=== PATIENT | female | born 1935 | race Caucasian/White ===

== ENCOUNTER 2017-05-13 17:00 | Inpatient (IN) ==
[2017-05-13 17:31] VITALS: BMI 30.1
[2017-05-13] MEDS ORDERED: SYSTANE EYE DROPS 0.7ml EACH EYE PRN (19:28)
--- NOTE | 2017-05-13 19:42 | History & Physical Report ---
History of Present Illness Date: 05/13/17 Chief complaint: fatigue HPI: Mrs. Guthrie is an 84-year-old female with history of atrial fibrillation on Pradaxa. She had routine blood work done yesterday which time hemoglobin came back 6.6 with MCV 61. She was seen in the office today in hemoglobin rechecked confirming marked anemia with repeat hemoglobin 6.8. The patient last had laboratory data in January 2017 at which time hemoglobin was 11.1 and last had labs in the [facility] system in August 2015 when hemoglobin was 13.6 and MCV was 96.9. Patient reports that she feels fatigued and tired. She has mild generalized weakness but has otherwise been going about usual activities. She denies exertional dyspnea, chest pain, palpitations, lightheadedness, or any recognized blood loss. She specifically denies indigestion, heartburn, nausea, or reflux. She's had no melena or rectal bleeding. She had a got flu with 3 days of diarrhea a week or 2 ago but is not aware of any blood loss associated with that event. Hemoccult the office was negative. She is hospitalized at this time for stabilization and consideration of additional workup. Patient's last colonoscopy was in 2005. Review of Systems All systems PM: 10-point ROS was reviewed, no additional remarkable complaints except (insomnia and minor arthralgias; otherwise as noted in the history of present illness.) Past Medical History Past Medical History Osteoarthritis Hypertension Atrial fibrillation Hypothyroidism History of breast cancer Lipedema, bilateral lower extremities Surgical History: Right lumpectomy 2000, bilateral cataracts, appendectomy, cholecystectomy, hysterectomy Family History: Father of coronary artery disease, mother of uterine cancer; patient denies known family history of colon cancer or other chronic bowel diseases Family History Updates: . - Social History Smoking status: Former smoker Substance use type: does not use Alcohol intake frequency: does not drink Housing: house Does patient use chewing tobacco?: No Current residence: Apartment/Private Home Social history: PCP-Dr. Aixa DENIS-patient's son and daughter share DPOA CODE STATUS-full Medications Home Medications Medication Instructions Recorded Confirmed Type RX: Calcium Carbonate/Vitamin D3 1 tab PO DAILY #0 09/03/15 05/13/17 History [Calcium 600-Vit D3 200 Tablet] RX: Furosemide 20 mg PO DAILY #0 09/03/15 05/13/17 History RX: Hydrocodone/Acetaminophen 1 - 2 tab PO Q4HR PRN #0 09/03/15 History [Hydrocodon-Acetaminophn 10-325] RX: Levothyroxine Sodium 75 mcg PO ACB #0 09/03/15 05/13/17 History [Synthroid] RX: Multivitamin [Multivitamins] 1 tab PO DAILY #0 09/03/15 05/13/17 History RX: Potassium Chloride 10 meq PO BID #0 09/03/15 05/13/17 History RX: Verapamil HCl [Verapamil ER] 180 mg PO BID #0 09/03/15 05/13/17 History Dabigatran [Pradaxa] 1 cap PO BID 05/13/17 05/13/17 History Propylene Glycol/Peg 400/Pf 1 each OP PRN PRN 05/13/17 05/13/17 History [Systane 0.3-0.4% Eye Drops] Allergies Allergy/AdvReac Type Severity Reaction Status Date / Time No Known Allergies Allergy Verified 05/13/17 17:54 Exam Vital Signs: Temperature 97.9 F 05/13/17 17:30 Pulse Rate 100 05/13/17 17:30 Respiratory Rate 18 05/13/17 17:30 Blood Pressure 147/81 H 05/13/17 17:30 Pulse Oximetry 100 05/13/17 17:30 EXAM: General-NAD, alert, fluent speech HEENT-PERRL, EOMI without nystagmus, conjugate gaze, conjunctiva clear, sclera anicteric, facial structures symmetric, oropharynx clear, neck supple and without adenopathy Lungs-respirations nonlabored, good airflow, breath sounds clear Cardiac-irregular rhythm, S1-S2, low-grade tachycardia Abd-soft, nontender, no mass palpated on exam, bowel sounds present Ext-without edema Skin-scattered small bruises but no wounds or ulcerations MS-minor degenerative changes Neuro-cranial nerves 3-12 intact, motor tone/power normal, sensation intact 4 extremities Psych-calm, cooperative Height/Weight/BMI: Height 1.65 m Weight 82.1 kg Body Mass Index 30.1 Results - Labs CBC & Chem 7: 05/13/17 18:35 Labs: Labs in the office yesterday include hemoglobin 6.6 with MCV 61, white count 8.7 , platelet count 370; basic metabolic panel unremarkable other than creatinine 1.0 with GFR 53. TSH was 3.53. Assessment and Plan (1) Microcytic anemia Current visit: Yes Status: Acute Assessment and Plan: Impression: Microcytic anemia Probable iron deficiency, likely due to chronic blood loss Thrombocytosis, likely reactive Chronic atrial fibrillation Fatigue/weakness hx of breast cancer CKD, stage III Hypothyroidism Plan: Mrs. Guthrie is hospitalized on an observation basis. Hemoglobin has been confirmed with microcytosis present suggesting iron deficiency. Hemoccult was negative in the office and patient is not aware of blood loss but chronic GI blood loss is probable. Iron studies/ferritin drawn prior to transfusion-anticipate patient will benefit from iron therapy. Transfuse 1 unit packed red blood cells tonight; hold Pradaxa. May require second unit of blood. May require PT/OT consults tomorrow depending on symptoms after transfusion. Dr. Keen consulted-anticipate EGD in a.m. with colonoscopy following prep in near future. - Physician Narrative Narrative: Date: 05/13/17 Time: 1936 Hospital Course Summary Disclaimer: The visit summary below is not to be considered part of the above Progress Note. Hospital Course: 05/13/17 Patient with chronic atrial fibrillation on Pradaxa admitted microcytic anemia without recognized blood loss or GI symptoms that suggest upper or lower source. Minimally symptomatic. Transfuse 1 unit packed red blood cells tonight; iron study/ferritin pending. Pradaxa on hold. Dr. Keen consulted to coordinate endoscopic studies.
[2017-05-13] MEDS ORDERED: NS FLUSH BAG 500ml IV PRN (19:53)
[2017-05-13] MEDS ORDERED: POTASSIUM CHLORIDE 10 MEQ PO SCH (21:00)
[2017-05-14] MEDS: LEVOTHYROXINE 50 MCG TABLET PO SCH ×2 (06:02→12:31)
--- NOTE | 2017-05-14 07:36 | General Surgery Consult Note ---
Consult date: 05/14/17 Attending Physician: Serina Tucker MD Reason for consult: other (Anemia) [facility] Patient Stated Medical History Cataracts Yes Cardiac Arrhythmia Yes: afib Hypertension Yes Asthma Yes Bronchitis Yes Pneumonia Yes: years ago Anemia Yes Osteoarthritis Yes Surgical History: Right lumpectomy 2000, bilateral cataracts, appendectomy, cholecystectomy, hysterectomy, colonoscopy 2005 (report not available at this time) Family History: Father of coronary artery disease. Mother of uterine cancer patient denies known family history of colon cancer or other chronic bowel diseases - Social History Smoking status: Former smoker Alcohol intake frequency: does not drink Does patient use chewing tobacco?: No Current residence: Apartment/Private Home Social history: PCP-Dr. Kruse DPOA-patient's son and daughter share DPOA CODE STATUS-full Medications Home Medications Medication Instructions Recorded Confirmed Type Calcium Carbonate/Vitamin D3 1 tab PO DAILY #0 09/03/15 05/13/17 History [Calcium 600-Vit D3 200 Tablet] Furosemide 20 mg PO DAILY #0 09/03/15 05/13/17 History Hydrocodone/Acetaminophen 1 - 2 tab PO Q4HR PRN #0 09/03/15 History [Hydrocodon-Acetaminophn 10-325] Levothyroxine Sodium [Synthroid] 75 mcg PO ACB #0 09/03/15 05/13/17 History Multivitamin [Multivitamins] 1 tab PO DAILY #0 09/03/15 05/13/17 History Potassium Chloride 10 meq PO BID #0 09/03/15 05/13/17 History Verapamil HCl [Verapamil ER] 180 mg PO BID #0 09/03/15 05/13/17 History Dabigatran [Pradaxa] 1 cap PO BID 05/13/17 05/13/17 History Propylene Glycol/Peg 400/Pf 1 each OP PRN PRN 05/13/17 05/13/17 History [Systane 0.3-0.4% Eye Drops] Allergies Allergy/AdvReac Type Severity Reaction Status Date / Time No Known Allergies Allergy Verified 05/13/17 17:54 Review of Systems 10-point ROS: negative except for HPI and the following: - Eyes/Ears/Nose/Throat Ear Nose Throat: Present: loose/chipped/cracked teeth (missing teeth, has dentures) - Cardiovascular Cardiovascular: Present: irregular heart beat - Musculoskeletal Musculoskeletal: Present: other (generalized weakness) - Endocrine Endocrine: Present: thyroid problems (hypothyroidism) - Hematologic/Lymphatic Hematologic/Lymphatic: Present: easy bruising, use of blood thinners - Vital Signs Last Vital Signs Temp 98.0 F 05/14/17 00:36 Pulse 84 05/14/17 00:36 Resp 22 05/14/17 00:36 BP 121/70 05/14/17 00:36 Pulse Ox 97 05/14/17 00:36 - Laboratory Result Diagrams: 05/14/17 01:56 General Surgery Results - Results Labs: 05/14/17 01:56 Hospital Course Summary Disclaimer: The visit summary below is not to be considered part of the above Progress Note. Hospital Course: 05/13/17 Patient with chronic atrial fibrillation on Pradaxa admitted microcytic anemia without recognized blood loss or GI symptoms that suggest upper or lower source. Minimally symptomatic. Transfuse 1 unit packed red blood cells tonight; iron study/ferritin pending. Pradaxa on hold. Dr. Keen consulted to coordinate endoscopic studies.
[2017-05-14] MEDS ORDERED: LIDOCAINE VISCOUS 2% ORAL LIQUID 15ml ONE (09:18)
--- NOTE | 2017-05-14 09:20 | Anesthesia Preoperative Report ---
Anesthesia Preoperative Record - Date and Time Date: 05/14/17 Preoperative Diagnosis: anemia Proposed Procedure: egd NPO Since Date: 05/13/17 NPO Since Time: 23:00 Allergies/Adverse Reactions: Allergies Allergy/AdvReac Type Severity Reaction Status Date / Time No Known Allergies Allergy Verified 05/13/17 17:54 - Vital Signs Vital Signs: Temperature 98.3 F 05/14/17 09:08 Pulse Rate 88 05/14/17 09:13 Respiratory Rate 16 05/14/17 09:08 Blood Pressure 138/69 05/14/17 09:08 Pulse Oximetry 95 05/14/17 09:08 Height and Weight: Height 1.65 m Weight 82.8 kg Body Mass Index 30.1 - Medications Inpatient Medications: Current Medications Calcium/Vitamin D (Caltrate + D) 1 tab PO DAILY [facility] Furosemide (Lasix) 20 mg PO DAILY [facility] Levothyroxine Sodium (Synthroid) 75 mcg PO ACB [facility] Last Admin: 05/14/17 06:02 Dose: Not Given Multivitamins (Theragran) 1 tab PO DAILY [facility] Polyethyl Glycol/Propylene Glycol (Systane Eye Drops) 1 drop EACH EYE PRN PRN PRN Reason: Dry eyes Potassium Chloride (K-Dur) 10 meq PO BIDWM [facility] Sodium Chloride (Normal Saline) 500 ml IV PRN PRN Last Admin: 05/13/17 22:30 Dose: 500 ml Verapamil HCl (Calan Sr) 180 mg PO BID [facility] Last Admin: 05/13/17 20:49 Dose: 180 mg Home Medications: Home Medications Medication Instructions Recorded Confirmed Type Calcium Carbonate/Vitamin D3 1 tab PO DAILY #0 09/03/15 05/13/17 History [Calcium 600-Vit D3 200 Tablet] Furosemide 20 mg PO DAILY #0 09/03/15 05/13/17 History Hydrocodone/Acetaminophen 1 - 2 tab PO Q4HR PRN #0 09/03/15 History [Hydrocodon-Acetaminophn 10-325] Levothyroxine Sodium [Synthroid] 75 mcg PO ACB #0 09/03/15 05/13/17 History Multivitamin [Multivitamins] 1 tab PO DAILY #0 09/03/15 05/13/17 History Potassium Chloride 10 meq PO BID #0 09/03/15 05/13/17 History Verapamil HCl [Verapamil ER] 180 mg PO BID #0 09/03/15 05/13/17 History Dabigatran [Pradaxa] 1 cap PO BID 05/13/17 05/13/17 History Propylene Glycol/Peg 400/Pf 1 each OP PRN PRN 05/13/17 05/13/17 History [Systane 0.3-0.4% Eye Drops] - Medical History Respiratory: Reports: Asthma, Bronchitis, Pneumonia (years ago) DENIES: Sleep Apnea Cardiovascular: Reports: Arrhythmia (afib, Sees Dr. Ulrich every 6 months), Hypertension Neuro/Musculoskeletal: Reports: [email or web address] Renal/Endocrine: Reports: Thyroid Disease Other History: Reports: Cancer (right breast cancer 2000) - Surgical History HEENT Surgeries: Reports: Eye Surgery (bilateral cataracts removed) Cardiac Surgeries/Treatments: Reports: Cardiac Catheterization (10 yrs ago for arythmia, found no problems, no mi of chest pain ) GI Surgery/Treatments: Reports: Appendectomy, Cholecystectomy, Colonoscopy Reproductive Surgery/Treatment: Reports: Hysterectomy, Oophorectomy, Other ( right lumpectomy-2000) Anesthesia Reactions: Nausea and Vomiting Hx Family Anesthesia Reaction: No - Social History Smoking Status: Former smoker Hx Chewing Tobacco Use: No Substance Use Type: does not use Alcohol Intake Frequency: does not drink - Pertinent Findings Laboratory: CBC and BMP 05/14/17 01:56 EKG: A-fib - Physical Exam Respiratory Exam: Present: lungs clear, bilateral breath sounds equal Cardiovascular Exam: Present: irregularly irregular, no murmur - Airway Assessment Mallampati Score: I TMD: 3 Fingerbreadths Neck Extension: good Teeth: upper dentures, lower dentures Overall Assessment: no airway concerns - ASA ASA Score: 3 - Plan Anesthesia: General TIVA - Discussion Discussion: Discussed risks/options/alternatives of anesthesia and questions answered. Patient consents. Nursing pain assessment noted. Attestation Statement: Prior to the delivery of any anesthetic medication, I examined the patient, developed the plan, obtained the patient's consent and discussed the risk and benefits of the procedure with the patient/guardian. - Additional Information Seen by Anesthesia: Yes
[2017-05-14] MEDS: LR 1,000 ML IV SCH (09:21)
[2017-05-14] MEDS ORDERED: PROPOFOL 20 ML ONE (09:30)
[2017-05-14] MEDS ORDERED: LIDOCAINE 2% (100mg/5mL) PF 5ml vl ONE (09:30)
[2017-05-14] MEDS ORDERED: LIDOCAINE VISCOUS 2% ORAL LIQUID 15ml PO ONE (09:31)
--- NOTE | 2017-05-14 09:45 | Procedure Note ---
- Procedure Date/Time: Date: 05/14/17 Time: 940 Surgeon: Leonila ASA Score: 3 Proceure: EGD for fausto assay, EGD- antrum biopsies - Preoperative Diagnosis Anemia - Postoperative EGD Diagnosis Postoperative EGD Diagnosis: Other (bleeding gastric ulcer) - Complications Complications: None Estimated Blood Loss: See Anesthesia Record. Vital Signs: See Anesthesia and PACU record.
--- NOTE | 2017-05-14 10:19 | Anesthesia Postoperative Note ---
- Date and Time Date: 05/14/17 Time: 09:56 - Status Patient Participated in Evaluation: Patient Participated in Person Vital Signs: Temperature 97.7 F 05/14/17 09:50 Pulse Rate 83 05/14/17 10:15 Respiratory Rate 14 05/14/17 10:15 Blood Pressure 141/77 H 05/14/17 10:15 Pulse Oximetry 98 05/14/17 10:15 Respiratory Function: Airway Patent Cardiovascular Function: Irregular Pulse EKG: A-fib Mental Status: Alert and Oriented Pain Intensity: 0 Hydration: IV Infusing Complications During Recover: None Apparent - Follow-Up Instructions Instructions: Per Surgeon
[2017-05-14] MEDS: CALCIUM 600 + VIT D 400 TABLET PO SCH (12:29)
[2017-05-14] MEDS: POTASSIUM CHLORIDE 10 MEQ PO SCH ×2 (12:29→18:18)
[2017-05-14] MEDS: FUROSEMIDE 20 MG TABLET PO SCH (12:29)
[2017-05-14] MEDS: PANTOPRAZOLE 40 MG INJECTION IVP SCH ×2 (12:43→20:51)
[2017-05-14] MEDS: SUCRALFATE 1gm/10ml ORAL LIQUID PO SCH ×3 (12:43→20:52)
[2017-05-14] MEDS ORDERED: PNEUMOCOCCAL 13 VACCINE 0.5ml INJECTION IM ONE (13:42)
--- NOTE | 2017-05-14 14:17 | Consultation ---
DATE OF CONSULTATION 05/14/2017 FINDINGS Mrs. Guthrie is an 82-year-old female I was asked to see today as a result of the finding of marked anemia upon laboratory evaluation. Upon questioning Mrs. Guthrie she informs me that she has not noted any type of component of bleeding. She denies any history for melanotic stools or history for hematochezia. She denies prior history for peptic ulcer disease. The patient denies significant nonsteroidal use. She states that she may take one or two ibuprofen on an every other day basis. The patient is on anticoagulation as a result of her history of atrial fibrillation. The patient states that recently she did have "a horrible flu" and had significant nausea, vomiting and diarrhea. The patient states that she has now recovered from the flu but was feeling more weak and fatigued than usual. She was noting a component of shortness of breath upon exertion. The patient presented to her primary care physician who obtained laboratory evaluation revealing the patient to be quite anemic with a hemoglobin of around 6. The patient was subsequently admitted to our facility for further care. PAST MEDICAL HISTORY Performed by my nurse practitioner, Lino Vázquez. PAST SURGICAL HISTORY Performed by my nurse practitioner, Lino Vázquez. MEDICATIONS Performed by my nurse practitionerLino. ALLERGIES Performed by my nurse practitionerLino. SOCIAL HISTORY Performed by my nurse practitionerLino. FAMILY HISTORY Performed by my nurse practitionerLino. REVIEW OF SYSTEMS Performed by my nurse practitionerLino. PHYSICAL EXAMINATION GENERAL: Mrs. Guthrie is an elderly, somewhat cachectic-appearing 82-year-old female who did not appear to be in acute distress. VITALS: Temperature 98.3, pulse 88, respirations 16, blood pressure 138/69, SaO2 95% on room air. HEENT: Normocephalic. Pupils are equal, round and reactive to light and accommodation. CHEST: Clear to auscultation bilaterally. HEART: Irregularly irregular. No murmur auscultated. ABDOMEN: Palpation of the abdomen reveals it to be soft and nontender. I do not appreciate any evidence for hepatosplenomegaly or abnormal masses. EXTREMITIES: Without clubbing, cyanosis, or edema. NEURO: Cranial nerves II-XII grossly intact. Patient is without focal motor or sensory deficits. LABORATORY/RADIOGRAPH EVALUATION The patient's hemoglobin was 6.7 upon admission. She did undergo a blood transfusion and this morning her hemoglobin is 7.0. Iron studies have been obtained and are pending at time of dictation. ASSESSMENT 82-year-old female who is on chronic anticoagulation secondary to atrial fibrillation who presents with anemia of uncertain etiology. PLAN Esophagogastroduodenoscopy. It was my recommendation to the patient and her daughter who was present this morning that we go ahead and proceed with an EGD for further evaluation of her marked anemia. I did discuss with the patient and her daughter what an EGD entails and its associated risks which include, but are not limited to, bleeding and perforation. The patient and family understood and wished to proceed. MTDD
--- NOTE | 2017-05-14 16:06 | Progress Note ---
- Date 05/14/17 Subjective: Mrs. Guthrie in following EGD this morning. In retrospect knowing an ulcer was found she reports no preceding melena, black stools, dyspepsia, heartburn, or nausea. She reports being completely surprised with the finding. Minor oozing was reported after clot over the prepyloric ulcer was irrigated. Otherwise the patient reports that she feels much better today despite minimal change in hemoglobin overnight. She denies dyspnea, lightheadedness, palpitations, or nausea. She's had no chest pain. Is ambulating in the room without assistance. Objective Vital signs: Temperature 97.9 F 05/14/17 15:15 Pulse Rate 88 05/14/17 15:15 Respiratory Rate 18 05/14/17 15:15 Blood Pressure 119/67 05/14/17 15:15 Pulse Oximetry 100 -RA 05/14/17 15:15 NAD, alert, fluent speech Conjunctiva clear, sclera anicteric Respirations nonlabored, good airflow, breath sounds clear Regular rhythm, S1-S2 Abdomen soft, nontender, diminished bowel sounds MAEW, ambulating without assistance Height/Weight/BMI: Height 1.65 m Weight 82.8 kg Body Mass Index 30.1 Results - Labs CBC & Chem 7: 05/14/17 11:23 Labs: Hemoglobin immediately after 1 unit PRBCs 7.0; 7.1 this morning. Assessment and Plan (1) Microcytic anemia Current visit: Yes Status: Acute Assessment and Plan: Impression: Microcytic anemia Prepyloric ulcer with active bleeding Probable iron deficiency, likely due to chronic blood loss Thrombocytosis, POA, resolved Chronic atrial fibrillation Fatigue/weakness hx of breast cancer CKD, stage III Hypothyroidism Plan: Mrs. Guthrie require additional blood today based on ongoing blood loss and hemoglobin 7.1. Converted to inpatient status for same reason. Continue to monitor hemoglobin closely-may require additional blood. Iron studies pending-should be back tomorrow; may benefit from iron infusion. IV PPI and oral Carafate initiated. Pradaxa remains on hold for at least short run pending stabilization of hemoglobin/ulcer. Endoscopic studies discussed with Dr. Keen-given results he did not feel colonoscopy needed at this time. DVT Prophylaxis: SCD's GI Prophylaxis: Protonix (bid) Resuscitation Status: Full Code - Physician Narrative Narrative: Date: 05/14/17 Time: 1603 Hospital Course Summary Disclaimer: The visit summary below is not to be considered part of the above Progress Note. Hospital Course: 05/13/17 Patient with chronic atrial fibrillation on Pradaxa admitted microcytic anemia without recognized blood loss or GI symptoms that suggest upper or lower source. Minimally symptomatic. Transfuse 1 unit packed red blood cells tonight; iron study/ferritin pending. Pradaxa on hold. Dr. Keen consulted to coordinate endoscopic studies. 05/14/17 Prepyloric ulcer identified at EGD, continues to bleed slowly. Patient reports no peptic symptoms even knowing ulcer was identified. Clinically feels better however hemoglobin 7.1 after 1 unit PRBC; additional blood given since ulcer was bleeding endoscopically. PPI and Carafate initiated, Pradaxa remains on hold.
[2017-05-14] MEDS: MULTI-VITAMIN PLAIN TABLET PO SCH (18:18)
[2017-05-14] MEDS ORDERED: ZOLPIDEM 5 MG TABLET PO PRN (20:04)
[2017-05-14] MEDS ORDERED: SALINE FLUSH 10ml SYRINGE IV PRN (21:20)
--- NOTE | 2017-05-14 22:06 | Operative Note ---
DATE OF SERVICE 05/14/2017 SURGEON Anup Keen MD PREOPERATIVE DIAGNOSIS Anemia of uncertain etiology. POSTOPERATIVE DIAGNOSES Superficial prepyloric gastric ulcerations. Moderate gastritis. PROCEDURE Esophagogastroduodenoscopy with biopsies from prepyloric region/antrum for permanent pathology as well as for DAVE assay. ANESTHESIA TIVA BRIEF HISTORY/INDICATIONS Mrs. Guthrie is an 82-year-old female who recently presented to her primary care physician as a result of increasing weakness, fatigue, and shortness of breath with exertion. The patient did undergo laboratory evaluation and was found to be quite anemic with a hemoglobin around 6. The patient was subsequently admitted for further evaluation. It was recommended to the patient that she undergo an EGD for further evaluation of her anemia. If no marked abnormalities were noted upon EGD the patient and daughter were informed that I would then recommend proceeding with colonoscopy for further evaluation to rule out a potential GI source as the underlying etiology for her anemia. For completeness please refer to notes included in the patient's chart. FINDINGS Upon upper endoscopy the esophagus and duodenum were within normal limits. Within the stomach/prepyloric region one could see a small clot present. This clot was irrigated and one could see two small superficial ulcerations that were only on the order of 5-6 mm in diameter. There was a minimal amount of persistent bleeding coming forth from these small ulcerations. Biopsies were obtained from the antrum of the stomach via cold biopsy technique for permanent pathology as well as for DAVE assay. NARRATIVE OF PROCEDURE After informed consent was obtained the patient was brought to the endoscopy suite and placed in the left lateral decubitus position. Patient subsequently underwent total intravenous anesthesia by the nurse supervisor painting at my request. Formal timeout was then completed. Next, an Olympus gastroscope was inserted into the oral hypopharynx and subsequently the esophagus under direct visualization. Gastroscope was advanced through the esophagus, stomach, pylorus , duodenal bulb, second portion of the duodenum. Scope was slowly withdrawn. First and second portions of the duodenum were within normal limits. No evidence of duodenitis or ulcerations was noted. There was some blood within the duodenal bulb that was coming forth from the prepyloric region. This blood was irrigated and the mucosa was carefully inspected and there was no evidence for active bleeding within the duodenum. Scope was drawn back to the prepyloric region where a small clot was noted. This clot was irrigated and suctioned. Beneath the clot one could see two small superficial ulcerations that were only on the order of 4-5 mm in diameter. Nonetheless, one could see a small amount of bleeding coming forth from these small ulcerations. Photos were obtained for documentation purposes. It had been 24 hours since her last dose of Pradaxa and I elected to go ahead and proceed carefully with some superficial biopsies from the antrum to rule in or rule out the presence of H. pylori. Biopsies were obtained from within the antrum for permanent pathology as well as for DAVE assay via cold biopsy technique. J-maneuver was performed. Cardia and fundus were within normal limits. Scope was allowed to straighten and was slowly withdrawn. The remaining corpus of the stomach was well visualized and again without noted abnormalities. Scope was drawn back to the level of the squamocolumnar junction. Squamocolumnar junction was well demarcated with no endoscopic evidence for Mary's metaplasia or distal esophagitis. Scope was slowly withdrawn and the remaining esophageal mucosa was found to be within normal limits. The patient tolerated the procedure without difficulty and was sent back to the preop area in stable condition. Will place the patient on Carafate and IV Protonix postoperatively given her endoscopic findings. JOE
[2017-05-15] MEDS: SUCRALFATE 1gm/10ml ORAL LIQUID PO SCH ×3 (06:29→16:58)
[2017-05-15] MEDS: LEVOTHYROXINE 50 MCG TABLET PO SCH (06:29)
[2017-05-15] MEDS: MULTI-VITAMIN PLAIN TABLET PO SCH (08:23)
[2017-05-15] MEDS: POTASSIUM CHLORIDE 10 MEQ PO SCH ×2 (08:23→16:58)
[2017-05-15] MEDS: FUROSEMIDE 20 MG TABLET PO SCH (08:23)
[2017-05-15] MEDS: CALCIUM 600 + VIT D 400 TABLET PO SCH (08:23)
[2017-05-15] MEDS: PANTOPRAZOLE 40 MG INJECTION IVP SCH (08:24)
[2017-05-15] MEDS: LR 1,000 ML IV SCH (09:28)
[2017-05-15] MEDS ORDERED: IRON - PHARMACY CONSULT MC ONE (10:24)
--- NOTE | 2017-05-15 11:22 | Pharmacy Consult ---
Pharmacy Consult-Iron - Laboratory Information [facility] 05/13/17 05/13/17 05/14/17 18:35 19:02 01:56 Hgb 6.7 L 7.0 L Hct 25.8 L Iron 16 L TIBC 423 % Saturation 4 L 05/14/17 05/14/17 05/15/17 11:23 20:34 10:25 Hgb 7.1 L 9.0 L D 8.2 L Hct 26.9 L 29.8 L Iron TIBC % Saturation - Consult Information IV IRON CONSULT: Dx: Chronic Anemia: Will give TDI (Total Dose Infusion) over 4 hours. Actual body weight = 83.5kg Hgb Level = 6.7 g/dL Calculated Dosing weight = 57 kg Total dose needed: 1750 mg (35 mL) Will give test dose of 25mg IV push over 30 seconds. Watch VS q 15 minutes x 1 hr. (watching for anaphylaxis, respiratory distress, hives.) If no reaction will give full dose in NS 500ml TRA 125ml/hr. Watch VS q 1 hr during infusion. Thank you.
[2017-05-15] MEDS ORDERED: IRON DEXTRAN COMPLEX 100mg/2ml INJECTION IV ONE (11:25)
--- NOTE | 2017-05-15 12:38 | Progress Note ---
DATE OF SERVICE 05/15/2017 FINDINGS Mrs. Guthrie was in good spirits today. She denies any element of abdominal pain. She states that she has not noted any blood within her stools. She informs me that she is to get an iron infusion later today as a result of her finding of iron deficiency anemia. EXAM VITAL SIGNS: Temperature 98.1, pulse 75, respirations 17, blood pressure 136/67 , SAO2 92% on room air. HEENT: Normocephalic. Pupils are equally round and react to light and accommodation. CHEST: Clear to auscultation bilaterally. HEART: Regular rate and rhythm. Normal S1 and S2 without gallops, murmurs or clicks. ABDOMEN: Palpation of the abdomen reveals it to be soft and completely nontender today. LABORATORY/RADIOGRAPHIC EVALUATION Patient did receive additional blood yesterday and hemoglobin was 9.0. Today her hemoglobin is 8.2. As stated above, she was found to be iron deficient with a serum iron of 16%. Her percent iron saturation was low at 4%. ASSESSMENT 82-year-old female status post EGD with discovery of superficial prepyloric gastric ulcerations with associated minimal bleeding. PLAN Would recommend holding anticoagulation for a period of time to allow these ulcerations to heal. Recommend continuing with Carafate 1 g p.o. q.i.d. on an outpatient basis over the course of the next four to six weeks. Would also recommend use of a PPI long-term given her findings of peptic ulcer disease and the fact that she will likely be reinitiated on anticoagulation at some point in time as a result of her history for atrial fibrillation. I did review the electronic medical record and her DAVE assay was negative. Will await her final biopsy results and proceed accordingly with additional recommendations if needed. Will go ahead and sign off the patient's care at this time. [facility] C[facility]John
[2017-05-15] MEDS ORDERED: NS IV SCH (12:45)
[2017-05-15] MEDS ORDERED: IRON DEXTRAN IV SCH (12:45)
[2017-05-15 16:50] VITALS: BP 111/54; PULSE 71; RESP 16; TEMP 96.9; O2SAT 95
--- NOTE | 2017-05-15 19:02 | Discharge Summary ---
Discharge Information Date of admission: 05/14/17 11:57 Anticipated date of discharge: 05/15/17 Attending Physician: Serina Tucker MD Primary care physician: Iris Orourke DO Consults: Consulting Provider: Anup Keen - Discharge Diagnosis (1) Iron (Fe) deficiency anemia Status: Acute (2) Prepyloric ulcer Status: Acute Chronic atrial fibrillation Fatigue/weakness hx of breast cancer CKD, stage III Hypothyroidism - Procedures Procedures: EGD on 05/14/17 demonstrating superficial prepyloric gastric ulcerations and moderate gastritis. A small clot was present in the prepyloric region overlying superficial ulcerations. There was a small amount of persistent bleeding coming from the ulcerations. - Laboratory Labs: Hemoglobin on admission 6.7 with MCV 62.9. 05/15/17 18:21 Serum iron 16, TIBC 423, iron saturation 4%, ferritin 3.75 - Microbiology Microbiology 05/14/17 09:44 Gastric Biopsy Helicobacter pylori Rapid Urease -negative - Pathology Gastric mucosa biopsy demonstrated mild chronic mucosal inflammation with reactive epithelial changes compatible with reactive gastropathy. There is no metaplasia, dysplasia, or neoplasm identified. No helical Helicobacter organisms were identified. History of Present Illness HPI: Mrs. Guthrie is an 84-year-old female with history of atrial fibrillation on Pradaxa. She had routine blood work done yesterday which time hemoglobin came back 6.6 with MCV 61. She was seen in the office today in hemoglobin rechecked confirming marked anemia with repeat hemoglobin 6.8. The patient last had laboratory data in January 2017 at which time hemoglobin was 11.1 and last had labs in the [facility] system in August 2015 when hemoglobin was 13.6 and MCV was 96.9. Patient reports that she feels fatigued and tired. She has mild generalized weakness but has otherwise been going about usual activities. She denies exertional dyspnea, chest pain, palpitations, lightheadedness, or any recognized blood loss. She specifically denies indigestion, heartburn, nausea, or reflux. She's had no melena or rectal bleeding. She had a got flu with 3 days of diarrhea a week or 2 ago but is not aware of any blood loss associated with that event. Hemoccult the office was negative. She is hospitalized at this time for stabilization and consideration of additional workup. Patient's last colonoscopy was in 2005. Hospital Course This is a general summary of the patient's hospital course. For more details refer to the complete medical record. Hospital course: 05/13/17 Patient with chronic atrial fibrillation on Pradaxa admitted microcytic anemia without recognized blood loss or GI symptoms that suggest upper or lower source. Minimally symptomatic. Transfuse 1 unit packed red blood cells tonight; iron study/ferritin pending. Pradaxa on hold. Dr. Keen consulted to coordinate endoscopic studies. 05/14/17 Prepyloric ulcer identified at EGD, continues to bleed slowly. Patient reports no peptic symptoms even knowing ulcer was identified. Clinically feels better however hemoglobin 7.1 after 1 unit PRBC; additional blood given since ulcer was bleeding endoscopically. PPI and Carafate initiated, Pradaxa remains on hold. 05/15/17-discharge Mrs. Guthrie continues to feel well and reports significant improvement since the initial blood transfusion. She's received a total of 2 units of packed red blood cells since hospitalization. Hemoglobin this morning was 8.2 with repeat hemoglobin 8.4 this evening. Iron studies were reviewed with the patient this morning and she opted to proceed with IV iron replacement prior to discharge today. She had no difficulty with test dose of iron dextran and then received a dose of 1750 mg iron dextran to replace iron deficiency (approximately 10% of the infusion was not completed due to loss of IV access). The patient continues to have no difficulty with dyspeptic symptoms or dyspnea. She is ambulating without difficulty and is anxious for discharge home. Respirations are nonlabored with good airflow and breath sounds are clear. Abdomen is entirely benign. Patient stable to return home at this time. 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 She is to take Protonix twice a day for 2 weeks and then decrease to once daily and will remain on sucralfate suspension 4 times daily for the next 1-2 months. Patient is asked to follow up with Dr. Kruse in approximately one week at which time hemoglobin can be reassessed. Discharge medications reviewed with the patient in detail. Time spent with patient: discharge greater than 30 minutes Discharge Plan - Med Rec/Dispo Referrals/Follow Up: Mercedes Kruse MD [Physician] - 1 Week [facility] Instructions: Iron Deficiency Anemia (ED), Blood Transfusion (GEN) Prescriptions: New Pantoprazole Tab [Protonix Tab] 1 tab PO ACBID #60 tab Sucralfate Oral Liq [Carafate Slurry] 1 gm PO ACHS #1200 udc Continue Furosemide 20 mg PO DAILY #0 Hydrocodone/Acetaminophen [Hydrocodon-Acetaminophn 10-325] 1 - 2 tab PO Q4HR PRN #0 PRN Reason: PAIN Levothyroxine Sodium [Synthroid] 75 mcg PO ACB #0 Potassium Chloride 10 meq PO BID #0 Verapamil HCl [Verapamil ER] 180 mg PO BID #0 Calcium Carbonate/Vitamin D3 [Calcium 600-Vit D3 200 Tablet] 1 tab PO DAILY # 0 Multivitamin [Multivitamins] 1 tab PO DAILY #0 Propylene Glycol/Peg 400/Pf [Systane 0.3-0.4% Eye Drops] 1 each OP PRN PRN PRN Reason: Dry Eyes Discontinued Dabigatran [Pradaxa] 1 cap PO BID - Disposition 01 Discharged Home, Self-Care
== END 2017-05-15 19:45 | disposition home or self-care (01) | DRG 379 ==
LOC: MED
PROVIDERS: ADMIT Internal Medicine; ATTEND Internal Medicine
PROC: END.EGD (2017-05-14 09:40)